=== PATIENT | female | born 1965 | race Caucasian/White ===

== ENCOUNTER → 2017-11-16 | Outpatient (CLI) | payer BC ==
[2017-11-16 11:28] VITALS: BMI 51.2
== END | disposition home or self-care (01) ==
LOC: MNTWWP 11:05
PROVIDERS: ATTEND Family Medicine
DX: E66.01 Morbid (severe) obesity due to excess calories (principal); Z68.43 Body mass index [BMI] 50.0-59.9, adult
CPT/HCPCS: 97802

== ENCOUNTER → 2018-06-09 | Outpatient (CLI) | payer BC ==
--- NOTE | 2018-06-13 09:46 | MM ---
Reason for exam: screening (asymptomatic). Last mammogram was performed 17 years and 9 months ago. Physical Findings: A clinical breast exam by your physician is recommended on an annual basis and results should be correlated with mammographic findings. MG 3D Screening Mammo W/Cad Bilateral CC and MLO view(s) were taken. Prior study comparison: September 21, 2000, bilateral diagnostic mammogram. The breast tissue is heterogeneously dense. This may lower the sensitivity of mammography. Finding: There is a suspicious high spiculated architectural distortion in the upper outer quadrant, middle position of the right breast. ASSESSMENT: Incomplete: need additional imaging evaluation, BI-RAD 0 RECOMMENDATION: Special view mammogram of both breasts. If lesion persists on supplemental views, image directed ultrasound is recommended. [facility] will attempt to contact patient to return for supplemental views and ultrasound if indicated.
== END | disposition home or self-care (01) ==
LOC: RADMAMWWP 11:07
PROVIDERS: ATTEND Family Medicine
DX: Z12.31 Encounter for screening mammogram for malignant neoplasm of breast (principal)
CPT/HCPCS: 77063; 77067

== ENCOUNTER → 2018-07-07 | Outpatient (CLI) | payer BC ==
--- NOTE | 2018-07-07 12:02 | MM ---
Reason for exam: additional evaluation requested from abnormal screening. Last mammogram was performed 1 month ago. History: Took hormonal contraceptives for 7 years beginning at age 20. Physical Findings: Nurse did not find any significant physical abnormalities on exam. MG 3D Work Up W/Cad PRADEEP Bilateral spot compression CC and LM view(s) were taken. Spot compression MLO view(s) were taken of the right breast. Prior study comparison: June 09, 2018, bilateral MG 3d screening mammo w/cad. September 21, 2000, bilateral diagnostic mammogram. The breast tissue is heterogeneously dense. This may lower the sensitivity of mammography. No suspicious abnormality left breast. Right focal asymmetry improves on additional views. Precautionary right upper outer quadrant ultrasound. These results were verbally communicated with the patient and result sheet given to the patient on 07/07/18. ASSESSMENT: Incomplete: need additional imaging evaluation, BI-RAD 0 RECOMMENDATION: Ultrasound of the right breast. (upper outer quadrant)
--- NOTE | 2018-07-07 12:04 | USB ---
Reason for exam: additional evaluation requested from abnormal screening. History: Took hormonal contraceptives for 7 years beginning at age 20. US Breast Workup Limited RT Right limited breast ultrasound including focal area of concern, retroareolar and axilla demonstrates no cystic or solid lesion seen. Dense tissue corresponds to the mammographic finding. These results were verbally communicated with the patient and result sheet given to the patient on 07/07/18. ASSESSMENT: Benign, BI-RAD 2 RECOMMENDATION: Return to routine screening mammogram schedule for both breasts.
== END | disposition home or self-care (01) ==
LOC: RADMAMWWP 10:45
PROVIDERS: ATTEND Family Medicine
DX: R92.8 Other abnormal and inconclusive findings on diagnostic imaging of breast (principal)
CPT/HCPCS: 77062; 77066

== ENCOUNTER → 2018-11-30 | Outpatient (CLI) | payer BC ==
[2018-11-30 12:55] LABS: Basophils # (A) 0.1 k/uL (0-0.2); Basophils % (A) 1 %; Eosinophils # (A) 0.2 k/uL (0-0.7); Eosinophils % (A) 2 %; HCT 39.3 % (34.0-46.0); HGB 12.4 gm/dL (11.4-16.0); Hypochromasia Slight; Lymphocytes # (A) 3.4 k/uL (1.0-4.8); Lymphocytes % (A) 33 %; MCH 29.1 pg (25.0-35.0); MCHC 31.5 g/dL (31.0-37.0); MCV 92.5 fL (80.0-100.0); Mean Platelet Volume 6.1; Monocytes # (A) 0.5 k/uL (0-1.0); Monocytes % (A) 5 %; Neutrophils # (A) 5.9 k/uL (1.3-7.7); Neutrophils % (A) 58 %; Platelet Count 424 k/uL (150-450); RBC 4.24 m/uL (3.80-5.40); RDW 13.7 % (11.5-15.5); WBC 10.2 k/uL (3.8-10.6)
== END | disposition home or self-care (01) ==
LOC: LABPAT 12:04
PROVIDERS: ATTEND Obstetrics & Gynecology
DX: Z01.818 Encounter for other preprocedural examination (principal); Z01.812 Encounter for preprocedural laboratory examination; I10 Essential (primary) hypertension; N95.0 Postmenopausal bleeding
CPT/HCPCS: 36415; 85025; 93005

== ENCOUNTER 2018-12-06 08:34 | Day surgery (SDC) | payer BC ==
--- NOTE | 2018-12-01 10:49 | HP ---
HISTORY AND PHYSICAL This is a 53-year-old female, 2, para 0-0-2-0. Patient is reporting for hysteroscopy and D and C for abnormal uterine bleeding. An office endometrial sampling was performed in June of 2018, consistent with non atypical endometrial hyperplasia. She has been on Megace daily since July 14. She bleed for one day in August, two days in September, and had bleeding daily since 11/03/2018. Risks and benefits of procedure have been discussed. In light of the history of endometrial hyperplasia, I believe that a full dilatation and curettage of the uterus accompanied by hysteroscopy is in the patient's best interest, both therapeutically and diagnostically. Patient understands and agrees. PAST MEDICAL HISTORY: Significant for morbid obesity, allergic rhinitis, anxiety, stress urinary incontinence, obstructive sleep apnea syndrome. PAST SURGICAL HISTORY: Endometrial biopsy in the past, benign cyst removals. SOCIAL HISTORY: Patient denies alcohol use, she is , she is a former tobacco smoker and denies any other illicit substance use. CURRENT MEDICATIONS: Vitamin D, topiramate 25 mg daily, 3 mg/zero 0.5 mg daily, phentermine 37.5 mg daily, hydrochlorothiazide 25 mg daily, fluticasone 50 mg daily, and Montelukast 10 mg daily. ALLERGIES: None known. FAMILY HISTORY: Noncontributory. PHYSICAL EXAM: This patient is 5 foot 5 inches, 304 pounds, BMI of 51. Blood pressure 130/82, vital signs otherwise stable. HEENT exam reveals no obvious thyromegaly, good dentition. No obvious cervical lymphadenopathy. Neck is soft and supple. Chest is clear to auscultation in all weiner anteriorly and posteriorly. Cardiac exam reveals regular rate and rhythm with no murmur, click, or rub. Breasts are bilaterally symmetric, large and pendulous to inspection, no obvious skin changes, nipple discharge, axillary adenopathy, or discernible lesions or masses. Abdominal exam reveals a morbidly obese abdomen, no obvious hepatosplenomegaly or tenderness, active bowel sounds. On pelvic examination, external genitalia is well estrogenized. Cervix appears healthy, small and long. Uterus is difficult to examine secondary to patient's morphology, however, it appears to be small, mobile, midline and nontender. Adnexa are negative bilaterally. Vaginal exam is unremarkable. Rectal exam reveals good sphincter tone, FIT negative stool. No obvious lymphadenopathy. IMPRESSION: Abnormal uterine bleeding with a history of non atypical endometrial hyperplasia diagnosed in June of 2018. Morbid obesity. PLAN: We will proceed with hysteroscopy, D and C of the uterine cavity. All risks and benefits of this procedure are discussed including risk of bleeding, infection, perforation or damage to the cervix, uterus, bowel, or bladder. Risks of anesthesia, aspiration, nerve damage, and even are all discussed. All questions answered. The ACOG pamphlet on this procedure has been given to the patient for her thorough review. I believe patient understands our discussion with no reservation or question. MMODL / IJN: [id number] /
[2018-12-01 14:55] VITALS: BMI 50.7
[~2018-12-06 08:34] MED LIST: DEXAMETHASONE SOD PHOSPHATE 10 MG/ML 1 ML VIAL IV ONE; HYDROmorphone 0.5 MG/0.5 ML SYRINGE IVP PRN; LACTATED RINGERS 1,000 ML IV SCH; MIDAZOLAM (PF) 2 MG/2 ML VIAL IV PRN; ONDANSETRON 4 MG/2 ML VIAL IVP ONE; Pre Op ABX Message 1 EACH MISC MISCELLANE ONE; SCOPOLAMINE 1.5MG/72HR PATCH TRANSDERM ONE
[2018-12-06] MEDS ORDERED: LIDOCAINE 1% 20 ML VIAL (10MG/ML) FOR IV START INTRADERMA ONE (09:05)
[2018-12-06 09:34] LABS: Glucose,Whole Blood 109 mg/dL (75-99)
[2018-12-06] MEDS ORDERED: LIDOCAINE 1% INJ 10MG/ML (20 ML MDV) ONE (09:47)
[2018-12-06] MEDS ORDERED: MIDAZOLAM 2 MG/2 ML VIAL ONE (09:47)
[2018-12-06] MEDS ORDERED: KETOROLAC 30 MG/ML 1 ML VIAL ONE (09:47)
[2018-12-06] MEDS ORDERED: fentaNYL (PF) 50 MCG/ML 2 ML AMP ONE (09:47)
[2018-12-06] MEDS ORDERED: SUCCINYLCHOLINE CHLORIDE 100 MG/5 ML SYR IV ONE (09:47)
[2018-12-06] MEDS ORDERED: PROPOFOL 10 MG/ML 20 ML VIAL IV ONE (09:47)
--- NOTE | 2018-12-06 10:20 | P.OP ---
Date of Procedure: 12/06/18 Preoperative Diagnosis: Abnormal uterine bleeding, history of non-atypical endometrial hyperplasia, morbid obesity Postoperative Diagnosis: Pathology pending Procedure(s) Performed: Hysteroscopy, dilatation and curettage of the uterine cavity, polypectomy Anesthesia: LAURA Surgeon: Velvet Faulkner Estimated Blood Loss (ml): 50 IV fluids (ml): 500 Urine output (ml): 150 Pathology: other (Endometrial curettings) Condition: stable Disposition: PACU Operative Findings: Endometrial polyps per inspection hysteroscopically, grade 2-3 rectocele Description of Procedure: Patient is brought to the operating suite where a general anesthetic is administered. She's placed in the dorsal lithotomy position. The appropriate timeout is performed to assure proper patient and procedural identification. Urine hCG is negative. Antibiotics are not deemed necessary. The cervix, vagina, perineal bodies are all prepped and draped in usual sterile fashion. Bladder is drained for approximately 150 mL of clear yellow urine. Weighted speculum was placed into the vagina after an examination under anesthesia reveals a anteverted, slightly bulky uterus. Adnexa negative bilaterally. Grade 2-3 rectocele is noted. The anterior lip of the cervix is grasped with a double-tooth tenaculum. Uterus sounds to a depth of 9 cm in the anteverted position. Cervix is gently and systematically dilated using Hanks dilators. The hysteroscope was introduced and saline is infused into the cavity. The cavity is distended and inspected. There are endometrial polyps noted. There is also suggestion of a submucosal fibroid. Hysteroscope was removed. Uterus is gently and systematically curettaged with a sharp medium curette. A large amount of tissue is obtained including polypoid appearing tissue. Polyp forceps are used to completely clear the cavity. Hysteroscope was once again introduced and the cavity is noted to be clear. All sponge needle and enhancement counts are correct at the end of this procedure. Tissue is sent to pathology for evaluation. Toradol is given to the patient. She is brought back to recovery room in good condition with stable vital signs including a blood pressure of 106/61, pulse 70, 100% O2 saturation. She will follow-up with the office in 2 weeks.
[2018-12-06 10:41] VITALS: TEMP 96.9
[2018-12-06 10:42] VITALS: RESP 16
[2018-12-06] MEDS ORDERED: LACTATED RINGERS 1,000 ML IV ONE (11:18)
[2018-12-06 11:51] VITALS: BP 114/73; PULSE 83
== END 2018-12-06 12:41 | disposition home or self-care (01) ==
LOC: OR 08:34
PROVIDERS: ATTEND Obstetrics & Gynecology
DX: D25.0 Submucous leiomyoma of uterus (principal); N81.6 Rectocele; E66.01 Morbid (severe) obesity due to excess calories; I10 Essential (primary) hypertension; F41.9 Anxiety disorder, unspecified; G47.33 Obstructive sleep apnea (adult) (pediatric); N85.02 Endometrial intraepithelial neoplasia [EIN]; Z87.891 Personal history of nicotine dependence; Z79.899 Other long term (current) drug therapy; Z99.89 Dependence on other enabling machines and devices; Z68.43 Body mass index [BMI] 50.0-59.9, adult
CPT/HCPCS: 58558; 81025; 88305; 84132; J2250; J1100; J2405; J2001; J3010; J1885; J0330; J2704; 88341; 88342

== ENCOUNTER → 2019-12-15 | Outpatient (CLI) | payer BC ==
--- NOTE | 2019-12-15 13:00 | ECHOF ---
Referral Reason:R01.1 Cardiac Murmur MEASUREMENTS -------- HEIGHT: 167.6 cm WEIGHT: 154.2 kg BP: IVSd: 1.3 cm (0.6 - 1.1) LVIDd: 3.6 cm (3.9 - 5.3) LVPWd: 1.4 cm (0.6 - 1.1) IVSs: 1.6 cm LVIDs: 2.7 cm LVPWs: 1.4 cm LAESV Index (A-L): 18.42 ml/m Ao Diam: 3.0 cm (2.0 - 3.7) LA Diam: 3.6 cm (2.7 - 3.8) MV E Paul: 1.06 m/s MV DecT: 116 ms MV A Paul: 1.40 m/s MV E/A Ratio: 0.76 AV maxP.25 mmHg AV meanP.38 mmHg RAP: 5.00 mmHg RVSP: 25.96 mmHg FINDINGS -------- Sinus rhythm. This was a technically difficult study with suboptimal views. The left ventricular size is normal. There is moderate concentric left ventricular hypertrophy. O verall left ventricular systolic function is normal with, an EF between 55 - 60 %. The right ventricle is normal in size. The left atrial size is normal. The right atrial size is normal. The aortic valve was not well visualized. There is mild aortic stenosis present. Peak/mean gradie nt across the Aortic Valve is 38.25mmHg / 23.38mmHg. The mitral valve leaflets are mildly thickened. Mild mitral regurgitation is present. The tricuspid valve appears structurally normal. Mild tricuspid regurgitation present. Right vent ricular systolic pressure is normal at < 35 mmHg. The pulmonic valve was not well visualized. There is no pulmonic regurgitation present. The aortic root size is normal. Normal inferior vena cava with normal inspiratory collapse consistent with estimated right atrial pre ssure of 5 mmHg. There is no pericardial effusion. CONCLUSIONS -------- 1. This was a technically difficult study with suboptimal views. 2. The left ventricular size is normal. 3. There is moderate concentric left ventricular hypertrophy. 4. Overall left ventricular systolic function is normal with, an EF between 55 - 60 %. 5. The left atrial size is normal. 6. The aortic valve was not well visualized. 7. There is mild aortic stenosis present. 8. Peak/mean gradient across the Aortic Valve is 38.25mmHg / 23.38mmHg. 9. The mitral valve leaflets are mildly thickened. 10. Mild mitral regurgitation is present. 11. Mild tricuspid regurgitation present. 12. Right ventricular systolic pressure is normal at < 35 mmHg. 13. There is no pulmonic regurgitation present. 14. Normal inferior vena cava with normal inspiratory collapse consistent with estimated right atrial pressure of 5 mmHg. 15. There is no pericardial effusion. WHISKEY FILTERER: Franca Chakraborty RDCS
== END | disposition home or self-care (01) ==
LOC: RADECHMAIN 10:29
PROVIDERS: ATTEND Family Medicine
DX: I08.3 Combined rheumatic disorders of mitral, aortic and tricuspid valves (principal)
CPT/HCPCS: 93306